=== PATIENT | female | born 1990 | race Caucasian/White ===

== ENCOUNTER 2020-05-19 14:40 | Outpatient (REF) | payer OTHER, SELFPAY ==
[2020-05-19 15:06] LABS: COVID-19 Test Negative (Negative)
== END 2020-05-19 14:41 | disposition home or self-care (01) ==
LOC: HO.LAB 14:40
PROVIDERS: Visit Provider Internal Medicine
DX: Z20.828 Contact with and (suspected) exposure to other viral communicable diseases (principal)
CPT/HCPCS: 87635

== ENCOUNTER 2020-05-23 10:48 | Outpatient (REF) | payer OTHER, SELFPAY ==
[2020-05-23 11:29] LABS: COVID-19 Test Negative (Negative)
== END 2020-05-23 10:49 | disposition home or self-care (01) ==
LOC: HO.LAB 10:48
PROVIDERS: PCP Nurse Practitioner Family; Visit Provider Internal Medicine
DX: Z20.828 Contact with and (suspected) exposure to other viral communicable diseases (principal)
CPT/HCPCS: 87635

== ENCOUNTER 2020-06-16 14:10 | Outpatient (REF) | payer OTHER, SELFPAY ==
[2020-06-16 14:49] LABS: COVID-19 Test Negative (Negative)
== END 2020-06-16 14:11 | disposition home or self-care (01) ==
LOC: HO.EMPCOV 14:10
PROVIDERS: Visit Provider Internal Medicine
DX: Z20.828 Contact with and (suspected) exposure to other viral communicable diseases (principal)
CPT/HCPCS: 87635; C9803

== ENCOUNTER 2020-07-07 14:41 | Outpatient (REF) | payer OTHER, SELFPAY ==
[2020-07-07 15:00] LABS: COVID-19 Test Negative (Negative)
== END 2020-07-07 14:42 | disposition home or self-care (01) ==
LOC: HO.LAB 14:41
PROVIDERS: PCP Nurse Practitioner Family; Visit Provider Internal Medicine
DX: Z20.828 Contact with and (suspected) exposure to other viral communicable diseases (principal)
CPT/HCPCS: 87635; C9803

== ENCOUNTER 2020-07-12 13:05 | Outpatient (REF) | payer OTHER, SELFPAY ==
[2020-07-12 13:25] LABS: COVID-19 Test Negative (Negative); IDNOW Serial# 55D5AD1C
== END 2020-07-12 13:06 | disposition home or self-care (01) ==
LOC: HO.LAB 13:05
PROVIDERS: Visit Provider Internal Medicine
DX: Z20.828 Contact with and (suspected) exposure to other viral communicable diseases (principal)
CPT/HCPCS: 87635; C9803

== ENCOUNTER 2020-08-17 14:00 | Outpatient (RCR) | payer OTHER, SELFPAY | END 2020-08-31 11:55 | disposition other institution (70) | LOC: HO.PT 14:00 | PROVIDERS: PCP Nurse Practitioner Family; Visit Provider Nurse Practitioner Women's Health | DX: M79.672 Pain in left foot (principal) | CPT/HCPCS: 97110; 97112; 97161; 97535 ==

== ENCOUNTER 2022-12-18 14:00 | Outpatient (RCR) | payer OTHER, SELFPAY | END 2023-01-15 12:54 | disposition home or self-care (01) | LOC: HO.PT 14:00 | PROVIDERS: Visit Provider Physician Assistant Medical | DX: S93.402D Sprain of unspecified ligament of left ankle, subsequent encounter (principal) | CPT/HCPCS: 97110; 97116; 97140; 97161; 97530; 97535 ==

== ENCOUNTER 2023-03-05 17:50 | Emergency (ER) | payer OTHER, SELFPAY ==
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
[2023-03-05 17:53] VITALS: BP 130/86; PULSE 77; RESP 18; TEMP 36.7; O2SAT 97; BMI 36.3
--- NOTE | 2023-03-05 17:57 | PC.NURSE ---
eval by idania peña- redness noted to inner ear upon exam. pt given ice pack for comfort.
[2023-03-05] MEDS: Acetaminophen 325 MG TABLET 975 MG PO (18:25)
[2023-03-05 18:26] LABS: UPreg QC Valid YES; Urine Pregnancy NEGATIVE (NEGATIVE)
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
== END 2023-03-05 20:30 | disposition home or self-care (01) ==
PROVIDERS: Physician Assistant; Emergency Provider Internal Medicine
DX: S09.90XA Unspecified injury of head, initial encounter (principal); R51.9 Headache, unspecified; Y04.8XXA Assault by other bodily force, initial encounter; Y93.9 Activity, unspecified; Y92.9 Unspecified place or not applicable; Y99.0 Civilian activity done for income or pay
CPT/HCPCS: 70450; 81025; 99284

== ENCOUNTER → 2023-03-07 13:10 | Outpatient (BNVA) | payer OTHER, SELFPAY | PROVIDERS: Visit Provider Physician Assistant | DX: Z13.89 Encounter for screening for other disorder (principal) | CPT/HCPCS: 99203 ==

== ENCOUNTER → 2023-03-18 10:17 | Outpatient (BNVA) | payer OTHER, SELFPAY | PROVIDERS: Visit Provider Physician Assistant Medical | DX: Z13.89 Encounter for screening for other disorder (principal) | CPT/HCPCS: 99213 ==

== ENCOUNTER → 2023-09-19 13:26 | Outpatient (BNVA) | payer OTHER, SELFPAY | PROVIDERS: PCP Pediatrics; Visit Provider Physician Assistant ==

== ENCOUNTER 2023-10-18 08:00 | Outpatient (AMB) | payer OTHER, SELFPAY ==
--- NOTE | 2023-10-18 13:13 | A.OFFVIS_ITS ---
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 Allergies erythromycin base Allergy (Verified 10/18/23 13:13) Eye Swelling Medication List - Last Reconciled 10/18/23 by Constantin Fairchild MD atenolol 25 mg PO DAILY chlorthalidone 25 mg PO DAILY escitalopram oxalate 20 mg PO DAILY hydroxyzine HCl 25 mg PO DAILY lisdexamfetamine 50 mg PO DAILY lorazepam mg PO metformin 500 mg PO DAILY 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 BMI 41.9 HPI Details Start time: 1.10am, End time: 2pm ?I spent 40 minutes speaking with the patient on the phone plus an additional 10 minutes reviewing and updating records for a total of 50 minutes HPI Comments History of Present Illness Details Previous weight loss efforts: Weight Watchers (2021: lost 75lbs but was injured and regained), High protein diet Wakes up: 7am, Sleeps: 11pm Breakfast: 8am (Premier protein shake and eggs) Lunch: 12pm (Egg bites, tuna salad with crackers, sandwich, soup) Dinner: 8pm (pasta, turkey sandwich) Snacks: 10pm (string cheese, peperoni sticks, apple) Exercise: Has a Peloton Fluids: Coffee (4oz iced coffee with protein shake in am), tea: none, juice: small amount of orange juice, soda: none, ETOH: none PFSH Medical History (Updated 10/18/23 @ 13:21 by Constantin Fairchild MD) ADHD Insomnia Intracranial hypertension Anxiety Depression Hypertension PCOS (polycystic ovarian syndrome) Morbid obesity Surgical History (Updated 10/18/23 @ 13:21 by Constantin Fairchild MD) History of strabismus surgery Family History (Updated 09/19/23 @ 13:57 by Yamilet Lauren CMA) Maternal Grandmother Brain cancer Breast cancer Bone cancer Paternal Aunt Breast cancer Physical Exam Vital Signs: BMI result Body Mass Index 41.9 Assessment & Plan Assessment & Plan (1) Morbid obesity: Code(s): E66.01 - Morbid (severe) obesity due to excess calories Plan: 1.? Plan for lap sleeve gastrectomy. If diaphragmatic or ventral hernias are present at time of surgery, these will be repaired laparoscopically as well. Risks and complications were discussed in detail including possible conversion to an open procedure, anastomotic leak, bleeding requiring transfusion, small bowel obstruction, , DVT and pulmonary embolism, cardiac, or pulmonary complications, as shelter complications such as anastomotic ulcer, insufficient weight loss and vitamin deficiencies. I emphasized the importance of close follow-up, adherence to instructions and good communication. 2. Nutritional counseling. Start with 2 CELEBRATE REBUILD protein (buy at [facility] [employer] [facility]) shakes (ONE scoop EACH in 8oz low fat unsweetened almond milk each) at 8am-10am and 11am-1pm, 1 protein bar (CELEBRATE protein bars, buy at [facility] [employer]) at 2pm-4pm, HALF protein bar at 5-6pm, dinner at 7pm (8 forks of protein and 8 forks of salad/vegetables) AND one more protein bar after dinner at 9pm-11pm. So you do 2 protein shakes, 2.5 protein bars and one meal per day. Meal to include lean meat (beef, fish, pork, turkey, chicken), or macedonian yogurt, or egg whites, or beans with a salad with olive oil and fruits (berries, pears, apples, kiwi). Avoid salt, breads, potatoes, rice, pasta, desserts. 3. Each shake would be drunk slowly, like coffee in a period of 2 hours. 4. Cut each bar in 4 pieces and eat each piece in 30min ?to make each bar last 2 hours. 5. I emphasized the importance of measuring accurately the food portion and measure it when serving the food in plate 6. The meal portions include 8 full-size forks of meat and 8 full-size forks of salad. You always eat the meat portion but you can replace up to 4 forks for salad/vegetables with rice, potatoes or pasta, or a fruit ?if you like. The less you do it the better weight loss will be. 7. One full-size fork is what it can be scooped on the fork without falling aside and not what can be bit with the fork. Use regular forks like those you find in a typical restaurant. 8.? Please send me weight measurements as soon as possible and then once a week. Always include your diet and exercise plan. 9. Start stationary bike at a resistance level of 0.0 Increase level by 1.0 every 3 min to a max level of 6.0. Stay at this level for 3 min and then return to level 0.0 and repeat same steps until 300 calories are burned. Split the work-out in 2 sessions of 150 calories each and not one all together. Goal is to burn 2000 calories per week on exercise 10. It is important of avoiding and for at least 18 months postoperatively and has been discussed at the infosession. 11. Goal is to lose at least 1.5-2lbs per week 12. Goal to lose 10% of your weight before surgery, which is about 24lbs. Ultimate weight goal: 220lbs before surgery 13. Please follow the diet plan exactly without any change. If you don't like something about the plan or you feel hungry you need to communicate with me so I can help you revise the plan. You should not change the plan yourself. Orders: Orders Hemoglobin A1c Today E28.2 - Polycystic ovarian syndrome, E66.01 - Morbid (severe) obesity due to excess calories, G93.2 - Benign intracranial hypertension, I10 - Essential (primary) hypertension Lipid Panel Today E28.2 - Polycystic ovarian syndrome, E66.01 - Morbid (severe) obesity due to excess calories, G93.2 - Benign intracranial hypertension, I10 - Essential (primary) hypertension IRON PROFILE Today E28.2 - Polycystic ovarian syndrome, E66.01 - Morbid (severe) obesity due to excess calories, G93.2 - Benign intracranial hypertension, I10 - Essential (primary) hypertension Comprehensive Met. Panel Today E28.2 - Polycystic ovarian syndrome, E66.01 - Morbid (severe) obesity due to excess calories, G93.2 - Benign intracranial hypertension, I10 - Essential (primary) hypertension Vitamin B12 and Folate Today E28.2 - Polycystic ovarian syndrome, E66.01 - Morbid (severe) obesity due to excess calories, G93.2 - Benign intracranial hypertension, I10 - Essential (primary) hypertension TSH reflex Free T4 Today E28.2 - Polycystic ovarian syndrome, E66.01 - Morbid (severe) obesity due to excess calories, G93.2 - Benign intracranial hypertension, I10 - Essential (primary) hypertension US abdomen comp w elastography Today E28.2 - Polycystic ovarian syndrome, E66.01 - Morbid (severe) obesity due to excess calories, G93.2 - Benign intracranial hypertension, I10 - Essential (primary) hypertension XR chest 2V Today E28.2 - Polycystic ovarian syndrome, E66.01 - Morbid (severe) obesity due to excess calories, G93.2 - Benign intracranial hypertension, I10 - Essential (primary) hypertension FL upper GI w air Today E28.2 - Polycystic ovarian syndrome, E66.01 - Morbid (severe) obesity due to excess calories, G93.2 - Benign intracranial hypertension, I10 - Essential (primary) hypertension Insulin Today E28.2 - Polycystic ovarian syndrome, E66.01 - Morbid (severe) obesity due to excess calories, G93.2 - Benign intracranial hypertension, I10 - Essential (primary) hypertension H Pylori Breath Test Today E28.2 - Polycystic ovarian syndrome, E66.01 - Morbid (severe) obesity due to excess calories, G93.2 - Benign intracranial hypertension, I10 - Essential (primary) hypertension Complete Blood Count Auto Diff Today E28.2 - Polycystic ovarian syndrome, E66.01 - Morbid (severe) obesity due to excess calories, G93.2 - Benign intracranial hypertension, I10 - Essential (primary) hypertension Zinc Today E28.2 - Polycystic ovarian syndrome, E66.01 - Morbid (severe) obesity due to excess calories, G93.2 - Benign intracranial hypertension, I10 - Essential (primary) hypertension C Reactive Protein Today E28.2 - Polycystic ovarian syndrome, E66.01 - Morbid (severe) obesity due to excess calories, G93.2 - Benign intracranial hypertension, I10 - Essential (primary) hypertension Vitamin B1 Today E28.2 - Polycystic ovarian syndrome, E66.01 - Morbid (severe) obesity due to excess calories, G93.2 - Benign intracranial hypertension, I10 - Essential (primary) hypertension Vitamin A Today E28.2 - Polycystic ovarian syndrome, E66.01 - Morbid (severe) obesity due to excess calories, G93.2 - Benign intracranial hypertension, I10 - Essential (primary) hypertension Ferritin Today E28.2 - Polycystic ovarian syndrome, E66.01 - Morbid (severe) obesity due to excess calories, G93.2 - Benign intracranial hypertension, I10 - Essential (primary) hypertension Vitamin D 25-OH Total Today E28.2 - Polycystic ovarian syndrome, E66.01 - Morbid (severe) obesity due to excess calories, G93.2 - Benign intracranial hypertension, I10 - Essential (primary) hypertension ECG 12 lead EKG Today E28.2 - Polycystic ovarian syndrome, E66.01 - Morbid (severe) obesity due to excess calories, G93.2 - Benign intracranial hypertension, I10 - Essential (primary) hypertension Referrals Behavioral Health Referral E28.2 - Polycystic ovarian syndrome, E66.01 - Morbid (severe) obesity due to excess calories, G93.2 - Benign intracranial hypertension, I10 - Essential (primary) hypertension Nutrition/Dietitian Referral E28.2 - Polycystic ovarian syndrome, E66.01 - Morbid (severe) obesity due to excess calories, G93.2 - Benign intracranial hypertension, I10 - Essential (primary) hypertension Telehealth Telehealth Location of provider rendering services: practice address Location of patient: address on file Patient Identification confirmed using: Name, : Yes Telehealth method: voice only Patient verbally consented to treatment: Yes Patient verbally consented to billing insurance company: Yes Patient informed of any privacy concerns related to visit: Yes Minutes spent on Phone/Video with Pt.: 50 Coding Level of Care Code Tele [facility] Pt Level 4 (44717) Diagnoses Morbid obesity E66.01 Time Spent (min) 50
[2023-10-18 13:31] VITALS: BMI 41.9
== END 2023-10-18 14:00 | disposition home or self-care (01) ==
LOC: HO.HBS 08:00
PROVIDERS: PCP Pediatrics; Visit Provider Surgery
DX: E66.01 Morbid (severe) obesity due to excess calories (principal)
CPT/HCPCS: 99204

== ENCOUNTER → 2023-10-18 08:00 | Outpatient (BNVA) | payer OTHER, SELFPAY | PROVIDERS: PCP Pediatrics; Visit Provider Surgery ==